=== PATIENT | female | born 1980 | race Two or more races ===

== ENCOUNTER 2018-03-26 20:06 | Emergency (ER) | payer MEDICAID ==
--- NOTE | 2018-03-26 21:08 | NUR ---
PATIENT LEFT STATES DOESN'T WANT TO SEE A MALE DOCTOR AND CAN'T AFFORD THE PRESCRIPTION FOR PLAN B.
== END 2018-03-26 21:10 | disposition left against medical advice (07) ==
LOC: ER 20:07
DX: Z53.21 Procedure and treatment not carried out due to patient leaving prior to being seen by health care provider (principal)